=== PATIENT | female | born 1945 | race Hispanic/Latino ===

== ENCOUNTER 2022-01-24 16:27 | Emergency (ER) | payer MEDICARE ==
[~2022-01-24] VITALS: Ht 152.4 cm; Wt 67.1 kg
[2022-01-24] MEDS ORDERED: ONDANSETRON HCL INJ 2MG/ML 2ML 2 MG/ML VIAL IV STA (16:56)
[2022-01-24] MEDS ORDERED: SODIUM CHLORIDE 0.9% 1000ML 1,000 ML IV STA (16:56)
[2022-01-24 17:02] LABS: BASOPHILS # (AUTO) 0.1 (0.0-0.1); BASOPHILS % 0.7 % (0.0-1.0); EOSINOPHILS # (AUTO) 0.3 (0.0-0.4); EOSINOPHILS % 2.8 % (0.0-6.0); HEMOGLOBIN 7.4 g/dL (12.0-16.0); LYMPHOCYTES % 8.5 % (18.0-39.1); MEAN CORPUSCULAR HEMOGLOBIN 29.4 pg (28-32); MEAN CORPUSCULAR HGB CONC 29.6 g/dL (31-35); MEAN CORPUSCULAR VOLUME 99.2 fL (81-99); MONOCYTES % 8.7 % (4.4-11.3); NEUTROPHILS # (AUTO) 9.1 (2.1-6.9); NEUTROPHILS % 78.7 % (38.7-80.0); PLATELET COUNT 553 x10e3/uL (140-360); RED BLOOD COUNT 2.52 x10e6/uL (3.6-5.1); RED CELL DISTRIBUTION WIDTH 14.8 % (11.7-14.4)
[2022-01-24 17:24] LABS: ALBUMIN 2.8 g/dL (3.5-5.0); ALBUMIN/GLOBULIN RATIO 0.7 (0.8-2.0); ANION GAP 17.9 mmol/L (8-16); CALCIUM 8.3 mg/dL (8.4-10.2); CREATININE, SERUM 0.89 mg/dL (0.57-1.11); POTASSIUM 3.9 mmol/L (3.5-5.1)
[2022-01-24 17:31] LABS: CREATINE KINASE MB 0.5 ng/mL (0-5.0)
[2022-01-24] MEDS ORDERED: IOPAMIDOL 370 MG/ML 100 ML INFUS..BTL INJ ONE (17:45)
[2022-01-24 18:01] LABS: CLARITY,URINE CLEAR (CLEAR); COLOR,URINE YELLOW (YELLOW); KETONES,URINE NEGATIVE (NEGATIVE); LEUKOCYTE ESTERASE ,URINE TRACE (NEGATIVE); NITRITE,URINE NEGATIVE (NEGATIVE); PROTEIN,URINE DIPSTICK 1+ (NEGATIVE); URINE UROBILINOGEN 1 mg/dL (0.2 - 1)
[2022-01-24 18:11] LABS: BACTERIA,URINE MODERATE /HPF; EPITHELIAL CELLS,URINE FEW /LPF; WBC,URINE (MAN) 0-5 /HPF (0-5)
[2022-01-24] MEDS ORDERED: VENTOLIN HFA18 GM INH (19:19)
[2022-01-24] MEDS ORDERED: AZITHROMYCIN250 MG PO (19:19)
[2022-01-24] MEDS ORDERED: ONDANSETRON ODT4 MG PO (19:19)
== END 2022-01-24 19:45 | disposition home or self-care (01) ==
LOC: ER 17:00
DX: U07.1 COVID-19 (principal); D64.9 Anemia, unspecified; R10.13 Epigastric pain
CPT/HCPCS: 36415; 71045; 71260; 74177; 80053; 81001; 82550; 82553; 83690; 83880; 84484; 85025; 93005; 99284; J7030; Q9967; U0002